=== PATIENT | male | born 1965 | race Caucasian/White ===

== ENCOUNTER 2019-02-15 04:06 | Inpatient (IN) | payer MEDICAID ==
[~2019-02-15] VITALS: Ht 170.2 cm; Wt 82.0 kg
[2019-02-15 04:13] VITALS: Ht 170.2 cm; Wt 82.0 kg
[2019-02-15] MEDS ORDERED: morphine 4 MG/ML VIAL IV STA ×2 (04:23→05:20)
[2019-02-15] MEDS ORDERED: ONDANSETRON 4 MG INJ IV STA (04:23)
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
[2019-02-15] MEDS ORDERED: PROPOFOL 200 MG INJ IV ONE (05:30)
[2019-02-15] MEDS ORDERED: ACETAMINOPHEN 325 MG TAB PO PRN (06:00)
[2019-02-15] MEDS ORDERED: ONDANSETRON 4 MG INJ IV PRN ×2 (06:00→07:00)
[2019-02-15] MEDS ORDERED: morphine 4 MG/ML VIAL IV PRN (07:00)
[2019-02-15] MEDS ORDERED: NACL 0.9% 3 ML SYG IV SCH (07:00)
[2019-02-15] MEDS ORDERED: ALBUTEROL/IPRATROPIUM (NEB) 3 ML AMP HHN PRN (07:00)
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
[2019-02-15] MEDS: HYDROmorphONE 1 MG/ML SYG IV PRN ×3 (07:36→20:16)
[2019-02-15 08:00] VITALS: BP 144/83; PULSE 77; RESP 16
[2019-02-15] MEDS: DEXTROSE 5%-0.45% NACL 1,000 ML IV SCH ×3 (09:25→19:44)
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
[2019-02-15] MEDS: CEFTRIAXONE 1 GM/50 ML (PMX) 50 ML IVPB SCH (12:52)
[2019-02-15 14:34] VITALS: BP 153/93; PULSE 72; RESP 15
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
[2019-02-15 19:18] VITALS: BP 140/93; PULSE 73; RESP 16
[2019-02-16] VITALS (17 sets, daily range): BP systolic 95–130; BP diastolic 50–80; PULSE 64–86; RESP 15–20
[2019-02-16] MEDS: HYDROmorphONE 1 MG/ML SYG IV PRN ×3 (01:15→09:28)
[2019-02-16] MEDS: DEXTROSE 5%-0.45% NACL 1,000 ML IV SCH ×4 (02:56→22:56)
[2019-02-16] MEDS: CEFTRIAXONE 1 GM/50 ML (PMX) 50 ML IVPB SCH (12:16)
--- NOTE | 2019-02-16 12:16 | PREAC ---
Date/Time of Note Date/Time of Note DATE: 02/16/19 TIME: 12:14 Anesthesia Eval and Record Evaluation Time Pre-Procedure Interview DATE: 02/16/19 TIME: 12:14 Age 53 Sex male NPO: 8 hrs Preoperative diagnosis trimalleolar fracture/dislocation Planned procedure left ankle open reduction and internal fixation Past Medical History Past Medical History: None GI: Obesity Surgery & Anesthesia Issues No known issue Meds Anticoagulation: No Beta Michael within 24 hr: No Reason Beta Michael not given: Pt. not on B-Michael Current Medications Dextrose/Sodium Chloride 1,000 ml @ 100 mls/hr Q10H IV Last administered on 02/16/19at 05:12; Admin Dose 100 MLS/HR; Start 02/15/19 at 06:56 IV Flush (NS 3 ml) 3 ml PER PROTOCOL IV ; Start 02/15/19 at 07:00 Ondansetron HCl (Zofran Inj) 4 mg Q6H PRN IV NAUSEA/VOMITING; Start 02/15/19 at 07:00 Morphine Sulfate (morphine) 4 mg Q4H PRN IV .SEVERE PAIN 1-10; Start 02/15/19 at 07:00 Hydromorphone HCl (Dilaudid) 1 mg Q3H PRN IV .SEVERE PAIN 7-10 Last administered on 02/16/19at 09:28; Admin Dose 1 MG; Start 02/15/19 at 07:00 Albuterol/ Ipratropium (Duoneb) 3 ml Q2H RESP THERAPY PRN HHN SHORTNESS OF WENDY TH; Start 02/15/19 at 07:00 Ceftriaxone Sodium 50 ml @ 100 mls/hr Q24H IVPB Last administered on 02/15/19at 12:52; Admin Dose 100 MLS/HR; Start 02/15/19 at 13:00 Meds reviewed: Yes Allergies Coded Allergies: No Known Allergy (Unverified , 02/15/19) Allergies Reviewed: Yes Labs/Studies Labs Reviewed: Reviewed by anesthesiologist Result Diagram: 02/16/19 0439 02/16/19 0439 Laboratory Tests 02/16/19 04:39 test: N/A Studies: ECG, CXR Pre-procedure Exam Last vitals Vital Signs Date Temp Pulse Resp B/P (MAP) Pulse Ox O2 O2 Flow FiO2 Time Delivery Rate 8/5/19 98.5 68 20 127/80 100 Room Air 01:12 (96) 02/15/19 3 05:52 Airway: Adequate mouth opening Mallampati: Mallampati II Teeth: Normal Lung: Normal Heart: Normal ASA Physical Status ASA physical status: 2 Emergency: None Planned Anesthetic General/MAC: ETT Pre-operative Attestations Prior to commencing anesthesia and surgery, the patient was re-evaluated, there was verification of: *The patient's identity *The results of appropriate recent lab work and preoperative vital signs *The above evaluation not changing prior to induction *Anesthetic plan, risk benefits, alternative and complications discussed with patient/family; questions answered; patient/family understands, accepts and wishes to proceed. LEONARDO BOLANOS Feb 16, 2019 12:16
[2019-02-16] MEDS ORDERED: NEOSTIGMINE 3 MG/3 ML SYRINGE ONE (13:50)
[2019-02-16] MEDS ORDERED: CEFAZOLIN 1 GM INJ ONE (13:50)
[2019-02-16] MEDS ORDERED: PROPOFOL 20 ML ONE (13:50)
[2019-02-16] MEDS ORDERED: GLYCOPYRROLATE 0.4 MG INJ ONE (13:50)
[2019-02-16] MEDS ORDERED: ROCURONIUM 50 MG INJ ONE (13:50)
[2019-02-16] MEDS ORDERED: FENTAnyl 50 MCG/ML VIAL ONE (13:51)
[2019-02-16] MEDS ORDERED: MIDAZOLAM 1 MG/ML 2 ML INJ ONE (13:51)
[2019-02-16] MEDS ORDERED: ONDANSETRON 4 MG INJ ONE (13:59)
[2019-02-16] MEDS ORDERED: DEXAMETHASONE 4 MG/ML 5 ML INJ ONE (13:59)
[2019-02-16] MEDS ORDERED: ROPIVACAINE 0.5 % 30 ML VIAL ONE (13:59)
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
--- NOTE | 2019-02-16 16:28 | PAC ---
Date/Time of Note Date/Time of Note DATE: 02/16/19 TIME: 16:28 Post-Anesthesia Notes Post-Anesthesia Note Last documented vital signs Vital Signs Date Temp Pulse Resp B/P (MAP) Pulse Ox O2 O2 Flow FiO2 Time Delivery Rate 02/16/19 98.5 68 20 127/80 100 Room Air 01:12 (96) 02/15/19 3 05:52 Activity: WNL Respiratory function: WNL Cardiovascular function: WNL Mental status: Baseline Pain reasonably controlled: Yes Hydration appropriate: Yes Nausea/Vomiting absent: Yes Erich Oconnor M.D. Feb 16, 2019 16:28
[2019-02-16] MEDS ORDERED: morphine 4 MG/ML VIAL IV PRN (16:30)
--- NOTE | 2019-02-16 16:41 | SIPON ---
Date/Time of Note Date/Time of Note DATE: 02/16/19 TIME: 16:36 Operative Report Preoperative Diagnosis trimalleolar fracture of right ankle Postoperative Diagnosis same Operation/Procedure Performed O.R.I.F. of trimalleolasr fracture of right ankle Surgeon see signature line temporary office assistant none Anesthesia: general Estimated blood loss: 10 - 50 ml's Transfusion Required none Specimen none Grafts/Implants a plate 7 screwsnone Complications none TOMA PACHECO MD Feb 16, 2019 16:41
--- NOTE | 2019-02-16 20:39 | OPR ---
DATE OF OPERATION: 02/16/2019 PREOPERATIVE DIAGNOSIS: Trimalleolar fracture of the right ankle. POSTOPERATIVE DIAGNOSIS: Trimalleolar fracture of the right ankle. PROCEDURE PERFORMED: Open reduction and internal fixation of the trimalleolar fracture of the right ankle. ANESTHESIA: General anesthesia. SURGEON: Tessy Pacheco MD PROCEDURE AND FINDINGS: Under anesthesia, the patient was placed in supine position upon the OR tabl e. Usual prep and drape was done exposing the right ankle. A tourniquet which was placed in the pro ximal portion of the right thigh was inflated up to 300 mmHg prior to the procedure. The lateral malleolus was opened through the lateral longitudinal incision. By blunt and sharp disse ction, the fracture was identified which was an oblique spiral fracture. The fracture was reduced an d was held reduced with a bone clamp, and then internally fixed using variable angle locking plate fo r the ankle. Attention was then directed to the medial aspect where the fractured medial malleolus is. By blunt a nd sharp dissection, the fractured malleolar fragment was exposed and was then reduced and was held r educed with the bone clamp and was internally fixed with the 150 mm long intramedullary screws. At t he end of the procedure, overall alignment of the fracture was satisfactory and the alignment of the ankle mortise was proper. Posterior malleolar fragment was also in good alignment. After irrigation and hemostasis, closure of the incision was carried out using 0 Vicryl for muscle an d fascia and 2-0 Vicryl for subcutaneous tissues. Final skin closure was carried out with skin stapl es. Usual sterile pressure dressings were applied. The patient tolerated the entire procedure very well and was sent to the recovery room in excellent c ondition. Dictated By: TESSY PACHECO MD IK/NTS Conf#: [id number] DID#: [id number] CC: TAMIKA DAVISON MD; YODIT SANDERSON MD;*EndCC*
[2019-02-16] MEDS: D5W-0.45 NACL + KCL 20 MEQ 1,000 ML IV SCH (21:08)
[2019-02-16] MEDS ORDERED: CEFAZOLIN 1 GM/50 ML (PMX) 50 ML IVPB SCH (22:00)
[2019-02-17 00:24] VITALS: BP 118/62; PULSE 86; RESP 18
[2019-02-17] MEDS: D5W-0.45 NACL + KCL 20 MEQ 1,000 ML IV SCH ×3 (02:13→08:54)
[2019-02-17 04:01] VITALS: BP 107/58; PULSE 76; RESP 18
[2019-02-17 07:55] VITALS: BP 109/55; PULSE 71; RESP 20
[2019-02-17] MEDS: DEXTROSE 5%-0.45% NACL 1,000 ML IV SCH (08:54)
[2019-02-17] MEDS ORDERED: ENOXAPARIN 40 MG/0.4 ML SYG SC SCH (09:00)
[2019-02-17] MEDS: HYDROCODONE/APAP (5/325) TAB PO PRN ×2 (10:44→15:59)
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
[2019-02-17] MEDS ORDERED: CALCIUM CARBONATE 500 MG CHEW TAB PO PRN (13:00)
[2019-02-17] MEDS: CEFTRIAXONE 1 GM/50 ML (PMX) 50 ML IVPB SCH (13:17)
--- NOTE | 2019-02-17 14:15 | PDOCDIS ---
Discharge Instructions DIAGNOSIS Discharge Diagnosis Right ankle trimalleolar fracture CONDITION [id number] Patient Condition: [id number] Good HOME CARE INSTRUCTIONS: [id number] Diet Instructions: [id number] Regular ACTIVITY: [id number] Activity Restrictions: [id number] No Restrictions FOLLOW UP/APPOINTMENTS Follow-up Plan 1. Continue all current medications as prescribed, including your penicillin. 2. For pain, take ibuprofen or acetaminophen (tylenol) as needed. 3. Make an appointment with Dr Ragland in 7-10 days. [phone]. 4. Until you see Dr. Ragland, do not remove the dressing or get it wet. Keep weight off the foot except for lightly touching the toes to the ground. 1. Contine con todos los medicamentos actuales segn lo recetado, incluida estes p enicilina. 2. Para el dolor, tome ibuprofeno o acetaminofeno (tylenol) segn sea necesario. 3. Erik olimpia lianne con el Dr. Ragland en 7-10 silver. [phone]. 4. Hasta que sherwin al Dr. Ragland, no quite el vendaje ni lo moje. Mantenga el peso alejado del pie, excepto tocar ligeramente los dedos del pie con el suelo. YODIT SANDERSON MD Feb 17, 2019 14:15
[2019-02-17 14:34] VITALS: BP 115/62; PULSE 82; RESP 19
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
[2019-02-17] MEDS ORDERED: IBUPROFEN 600 MG TAB PO PRN (16:30)
--- NOTE | 2019-02-17 17:19 | PN ---
DATE: 02/17/2019 One day postop. Stable vital signs. Alignment of the fracture is satisfactory with proper position of the fixation device. Ankle mortise has been maintained. No neurovascular compromise. Okay to be discharged for further followup as an outpatient including staple removal and dressing changes. Dictated By: TESSY PACHECO MD IK/NTS Conf#: [id number] DID#: [id number] CC: YODIT SANDERSON MD;*EndCC*
== END 2019-02-17 17:50 | disposition home or self-care (01) | DRG 494 ==
LOC: E/R 04:06 → MS1 05:44
PROVIDERS: ADMIT Internal Medicine; ATTEND Internal Medicine
PROC: 0QSGXZZ Reposition Right Tibia, External Approach (ICD-10-PCS; 2019-02-15)
PROC: 0QSG04Z Reposition Right Tibia with Internal Fixation Device, Open Approach (ICD-10-PCS; 2019-02-16)
PROC: 0QSJ04Z Reposition Right Fibula with Internal Fixation Device, Open Approach (ICD-10-PCS; principal; 2019-02-16 16:15)
DX: S82.851A Displaced trimalleolar fracture of right lower leg, initial encounter for closed fracture (principal); K04.7 Periapical abscess without sinus; E66.9 Obesity, unspecified; Y04.0XXA Assault by unarmed brawl or fight, initial encounter; Y92.511 Restaurant or cafe as the place of occurrence of the external cause; Z68.28 Body mass index [BMI] 28.0-28.9, adult
CPT/HCPCS: 71045; 73600; 80048; 80053; 82550; 82553; 83735; 84100; 84484; 85025; 93005; 94770; 96374; 96375; 96376; 97116; 97161; C1713; J0690; J0696; J1100; J1170; J1650; J2250; J2270; J2405; J2710; J2795; J3010; J3480; J7042